=== PATIENT | female | born 1940 | race Caucasian/White ===

== ENCOUNTER → 2018-06-11 14:08 | Outpatient (CLI) | payer MEDICARE, SELFPAY ==
--- NOTE | 2018-06-11 14:11 | DI.CT.S_ITS ---
PROCEDURE: CT CHEST ABD PEL W CON INDICATIONS: A 77-year-old woman with history of non-Hodgkin's lymphoma. CT for surveillance. TECHNIQUE: After the administration of oral and intravenous contrast, 5 mm thick sections acquired from the lung apices to the symphysis. 5 mm coronal and sagittal reformats were performed, with additional 7 mm coronal MIP reformats through the lungs. For radiation dose reduction, the following was used: automated exposure control, adjustment of mA and/or kV according to patient size. COMPARISON: [facility], CT, ABDOMEN/PELVIS WITH CONTRAST, 07/28/2011, 11:44. [facility], CT, NECK/CHEST/ABD/PEL W CONTRAST, 12/26/2016, 9:44. [facility], CT, NECK/CHEST/ABD/PEL W CONTRAST, 03/02/2016, 10:01. [facility], CT, NECK/CHEST/ABD/PEL W CONTRAST, 05/11/2015, 10:58. [facility], CT, NECK/CHEST/ABD/PEL W CONTRAST, 01/05/2015, 13:39. [facility], CT, SOFT TISSUE NECK W CONTRAST, 11/11/2014, 10:39. FINDINGS: Image quality: Excellent. CHEST: Lungs and pleura: Moderate emphysema. Small subcentimeter subpleural nodules lung bases are present, new. No acute airspace opacities. No pleural effusions or pneumothorax. Central and peripheral airways appear patent and normal in caliber. Mediastinum: Heart size is normal. No pericardial effusion. No mediastinal or hilar adenopathy by size criteria. Thoracic aorta and central pulmonary arteries are normal in size. Esophagus is normal in caliber. No hiatal hernia. Chest wall: No axillary or supraclavicular adenopathy by size criteria. Thyroid gland is normal. ABDOMEN: Solid organs: Liver is normal in size and enhancement. Gallbladder is normal. Biliary system is dilated but unchanged from the last exam. Pancreas enhances normally. Spleen is normal in size and enhancement. No adrenal nodules. Kidneys demonstrate normal size and enhancement, without hydronephrosis. Peritoneum and bowel: Bowel loops demonstrate normal wall thickness and caliber. No free fluid or air. Nodes and vessels: No retroperitoneal or mesenteric adenopathy by size criteria. There is a 1.3 x 1 cm calcified mass in the left side of small bowel mesentery, unchanged. Aorta and inferior vena cava are normal in size. Miscellaneous: No ventral hernias. PELVIS: Genitourinary: Bladder wall thickness is normal. Miscellaneous: No inguinal hernias or adenopathy. Bones: No suspicious bony lesions. No vertebral body compression fractures. Moderate levoscoliosis in lumbar spine. Severe degenerative changes are present in lumbar spine. IMPRESSION: 1. No CT evidence for recurrent lymphoma. 2. Emphysema. 3. Small subcentimeter subpleural nodules at lung bases are most likely infectious or inflammatory in etiology. Recommend a 3-months CT followup. 4. Stable calcified mass in the left side of small bowel mesentery. 5. Unchanged biliary dilation. Dictated by: Radha Hernandez M.D. on 06/11/2018 at 16:49 Transcribed by: ISA on 06/11/2018 at 17:00 Approved by: Radha Hernandez M.D. on 06/11/2018 at 18:45
[2018-06-11 15:18] LABS: Hematocrit 34.7 % (36-46); Hemoglobin 11.1 g/dL (12.0-16.0); Mean Corpuscular HGB Conc 31.9 % (30-36); Mean Corpuscular Hemoglobin 27.5 PG (26-34); Mean Corpuscular Volume 86.2 fL (80-100); Platelet Count 492 X10^3/uL (150-400); Red Blood Cell Count 4.02 X10^6/uL (4.0-5.2); Red Cell Distribution Width 15.2 % (11.6-14.8); White Blood Cell Count 12.7 X10^3/uL (4.5-11.0)
[2018-06-11 15:21] LABS: Add Manual Diff / Slide Review YES
[2018-06-11 15:26] LABS: Alanine Aminotransferase 31 IU/L (9-52); Albumin 4.6 g/dL (3.5-5.0); Albumin Globulin Ratio 1.9 (1.0-2.8); Alkaline Phosphatase 90 U/L (38-126); Aspartate Aminotransferase 38 IU/L (14-36); Bilirubin Total 0.4 mg/dL (0.2-1.3); Blood Urea Nitrogen 21 mg/dL (7-17); Calcium 9.6 mg/dL (8.4-10.2); Carbon Dioxide 31 mmol/L (22-32); Chloride 93 mmol/L (98-107); Estimated Glomerular Filt Rate > 60.0 mL/min (>60); Globulin 2.4 g/dL (1.7-4.1); Glucose 81 mg/dL (80-110); HEMOLYSIS 18 (0-50); Lactate Dehydrogenase 954 U/L (313-618); Potassium 4.1 mmol/L (3.4-5.1); Sodium 134 mmol/L (137-145)
[2018-06-11 16:18] LABS: Neutrophils Absolute Manual 10414 /uL (3000-5900); Total Cells Counted 100
[2018-06-11 16:19] LABS: RBC Morphology SM
[2018-06-11 16:20] LABS: Hypersegmented Neutrophils 2+; Platelet Estimate Increased on smear
[2018-06-11 16:21] LABS: Anisocytosis 1+; Poikilocytosis 1+
== END ==
PROVIDERS: Family Provider Family Medicine; PCP Family Medicine
DX: C82.90 Follicular lymphoma, unspecified, unspecified site (principal); J43.9 Emphysema, unspecified; R91.8 Other nonspecific abnormal finding of lung field; K63.9 Disease of intestine, unspecified; K83.8 Other specified diseases of biliary tract
CPT/HCPCS: 36415; 71260; 74177; 80053; 83615; 85025; Q9967

== ENCOUNTER → 2018-07-22 13:46 | Outpatient (CLI) | payer MEDICARE, SELFPAY ==
--- NOTE | 2018-07-22 | DI.RAD.S_ITS ---
PROCEDURE: FL BARIUM SWALLOW W SPEECH INDICATIONS: DYSPHAGIA, shortness of breath, cough TECHNIQUE: Examination was conducted in conjunction with speech pathology per standard protocol. In the lateral projection, filming was performed of the patient swallowing. AP projection filming may also be performed with patient swallowing. COMPARISON: None. FINDINGS: Function: The oral preparatory phase appears normal, with proper containment. The subsequent oral propulsive phase, pharyngeal phase, and esophageal phase of swallowing also appear normal with all proffered substances. There was silent tracheal aspiration.. There was prominent residual and vallecular pooling. Morphology: No cricopharyngeal bar is identified. No cervical esophageal webs. No Zenker's diverticulum. No strictures. IMPRESSION: Silent tracheal aspiration. Dictated by: Memo Vasquez M.D. on 07/22/2018 at 17:18 Approved by: Memo Vasquez M.D. on 07/22/2018 at 17:19
--- NOTE | 2018-07-22 18:28 | ST.SWALLOW ---
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 Edmund Narvaez Reason for Referral Dysphagia Setting Setting Outpatient Care Patient Information Identification Type Name Other Patient History Pt is a 77 year old female who presented for a Modified Barium Swallow Study at the referral of her physician Dr. Narvaez. According to the pt, she has had difficulty with swallowing solids and liquids with frequent choking, coughing, regurgitation of undigested foods and excessive phlegm. She has a medical history of primary gastric signet ring carcinoma and Non-Hodgkin's lymphoma. Sh did not indicate what type of treatment she underwent for the lymphoma, chemo, radiation or both. Subjective Observations pt was seated in the fluoroscopy chair Patient Positioning Position View Lat-A/P Imaging Lateral View Textures Administered Trials Presented Thin Liquid via Spoon Thin Liquid via Cup [place] Liquid via Spoon [place] Liquid via Cup Honey Liquid via Spoon Regular Textures Oral Phase Source: MBSIMP (TM) (C) Bolus Specific Scoring Grid Lip Closure WFL Tongue Control During Bolus Hold WFL Bolus Prep/Mastication WFL Bolus Transport/Lingual Motion Mild Impairment A/P Lingual Propulsion Delay Yes Number of Seconds Delayed (seconds) 1-3 Oral Residue Moderate Impairment Residue Clearing Moderate Impairment Nasal Regurgitation No Additional Oral Phase Observations Pt presents with oral phase dysphagia that results on delayed A-P propulsion of bolus to the base of tongue. Pt is unable to swallow bolus with one swallow - subsequent swallows necessary to clear oral cavity. There is oral residue spills into the pharynx post-swallow. Pharyngeal Phase Source: MBSIMP (TM) (C) Bolus Specific Scoring Grid Delayed Initiation of Pharyngeal Swallow Yes: Bolus head to the pyriform sinuses pre-swallow response Number of Seconds Delayed (seconds) 1-3 Soft Palate Elevation WFL Tongue Base Strength/Range of Motion Moderate Impairment Residue Along the Tongue Base Yes Clearance of Residue Along Tongue Base Moderate Impairment Laryngeal Elevation Mild Impairment Anterior Hyoid Movement Moderate Impairment Epiglottic Range of Motion Severe Impairment Vallecular Residue Yes: Significant residue in valeculla post-swallow Clearance of Vallecular Residue Severe Impairment Laryngeal Vestibular Closure Severe Impairment Pharyngeal Stripping Wave Severe Impairment Pharyngeal Contraction Severe Impairment Clearance of Posterior Pharyngeal Wall Mild Impairment Residue Upper Esophageal Sphincter Opening Mild Impairment Residue in the Pyriform Sinuses Yes: Significant residue in pyriform sinuses. Pt aspirates PS residue Clearance of Residue in the Pyriform Severe Impairment Sinuses Esophageal Clearance Upright Position Moderate Impairment Pharyngoesophageal Backflow Observed No Additional Pharyngeal Phase Observations Pt demonstrates significant pharyngeal dysphagia with no observed pharyngeal stripping or contraction of the pharyngeal muscles to aid in controlling the bolus. The epiglottis does not invert, compromising protection of the airway. Hyolaryngeal elevation is adequate; however there is minimal forward excursion of the hyoid bone, which impacts the positioning of the larynx in the neck and effects epiglottal seal of the laryngeal vestibule. There was penetration of the laryngeal vestibule for all trials of thin and nectar thick liquids. Penetration was observed for subsequent swallows of the residue from the mouth as well as the pharyngeal cavities. Aspiration occurred for thin and nectar thick liquids. Residual barium remained within the vestibule on the anterior wall of the thyroid cartilage, moving downward. All penetration and aspiration was silent - no reflexive cough observed. Pt needed to be cued to cough to clear, which was minimally effective. Honey thick liquids were swallowed without penetration nor aspiration. Residue from the honey thick liquids was evident, but did not penetrate vestibule. Solid trials with a cookie coated in barium indicated significant valecullar pooling with pieces remaining in both the valeculla and the pyriform sinuses. A barium tablet (11mm) was swallowed in both the lateral and A-P views. For both trials with tablets, the tablet immediately lodged in the valeculla and needed several swallow of water to dislodge the tablet into the esophagus. In the A-P view, the tablet dislodged in to the valeculla and after a couple of swallows of water, fell into the left pyiform sinus. Several more sips of water were needed in order to pass the tablet into the esophagus. A/P View Textures Administered Trials Presented [place] Liquid via Cup Barium Tablet A/P View Observations Pharyngeal Contraction Mild Impairment Vocal Fold Function Fair Residue Observed Valleculae Left Pyriform Sinus Left Esophageal Function WFL Esophageal Clearance Upright Position WFL Clinical Impressions Dysphagia Type Moderate to Severe oropharyngeal dysphagia Findings Pt is at high aspiration risk. Thickened liquids and a soft and moist diet recommendeed to avoid aspiration and aspiration pneumonia. Dysphagia therapy recommended to instruct pt in exercises to strengthen lingua-pharyngeal muscles for swallowing as well as strategies to use to reduce aspiration risk. The pt was scheduled for another procedure in radiology , so the results and recommendations were not discussed with the patient. Rehabilitation Potential Good Patient Appropriate for Therapy Yes Recommendations Diet Liquids Order Honey Diet Order Dysphagia Advanced Medication Recommendation Whole in Carrier Crushed in Carrier Aspiration Precautions Recommended Precautions Upright at 90 Degrees Alternate Liquids/Solids Frequent Rest Periods Small Bites/Sips Effortful Swallow Supraglottic Swallow Supersupraglottic Swallow Kacey Maneuvor Treatment Plan Therapy Recommendations Outpatient Speech Therapy Additional Therapy Recommendations Out patient ST for dysphagia HARRY for exercises and to advance pt diet Recommended Referrals Primary Care Physician Compensatory Strategies Recommendations Sitting Upright (90 deg) Double Swallow Supersupraglottic Swallow Mendelsonn Maneuver Small Bites and Sips Alternate Liquids/Solids Short Term Goals Pt will be instructed in and use lingua-pharyngeal exercises to increase tongue and pharyngeal muscles to enhance pharyngeal control of the bolus. Pt will be taught and use safe swallow strategies in order to reduce risk of aspiration during meals. Steam Frame Operator Goals Pt will safely tolerate the least restrictive diet in order to meet nutritional and hydration needs without s/sx aspiration.
--- NOTE | 2018-07-27 10:38 | P.PFT.S_ITS ---
Pulmonary Function Test Referral & Results Date Patient Seen: 07/22/18 Requesting provider: Edmund Narvaez Indication: R06.02 Results: The spirometry demonstrates an FVC of 1.68 L which is 63% of predicted. The FEV1 was measured at 0.75 L which is 37% of predicted. The FEV1/FVC ratio was 45 which is 59% of predicted. Following the administration of bronchodilator there was any% improvement in FEV1 and a 45% improvement in FEF 25-75%. Lung volumes show an SVC of 1.75 L which is 66% of predicted. The diffusing capacity was measured at 6.52 which is 28% of predicted. No hemoglobin value was provided, so no correction for potential anemia could be made, if appropriate. Interpretation: This study demonstrates severe obstructive lung disease with evidence of benefit following bronchodilator based on 45% improvement in FEF 25- 75% which would indicate more benefit and small airway flow There is also moderately severe restrictive lung disease present based on reduction in SVC There is a severe reduction in diffusing capacity suggesting significant disease at the capillary alveolar level to the point where patients likely hypoxic at times on room air Clinical correlation suggested
== END ==
PROVIDERS: PCP Family Medicine; Visit Provider Family Medicine
DX: R06.02 Shortness of breath (principal); R13.10 Dysphagia, unspecified; R05 Cough
CPT/HCPCS: 74230; 92611; 94060

== ENCOUNTER → 2018-09-03 14:22 | Outpatient (CLI) | payer MEDICARE, SELFPAY ==
[2018-09-03 14:46] LABS: Hemoglobin 10.7 g/dL (12.0-16.0); Mean Corpuscular HGB Conc 31.4 % (30-36); Mean Corpuscular Hemoglobin 26.7 PG (26-34); Mean Corpuscular Volume 84.9 fL (80-100); Platelet Count 531 X10^3/uL (150-400); Red Blood Cell Count 4.01 X10^6/uL (4.0-5.2); Red Cell Distribution Width 16.8 % (11.6-14.8)
[2018-09-03 14:51] LABS: Add Manual Diff / Slide Review YES
--- NOTE | 2018-09-03 14:51 | DI.CT.S_ITS ---
PROCEDURE: CT CHEST WO CON INDICATIONS: follow for pulmonary nodules TECHNIQUE: Noncontrast 5 mm thick sections acquired from the pulmonary apices to the posterior costophrenic angles. 7 mm thick coronal and sagittal MIP reformats were then acquired. For radiation dose reduction, the following was used: automated exposure control, adjustment of mA and/or kV according to patient size. COMPARISON: [facility], CT, CT CHEST ABD PEL W CON, 06/11/2018, 15:05. FINDINGS: Image quality: Excellent. Lungs and pleura: Moderate centrilobular emphysema again noted. No suspicious pulmonary nodules. There has been interval progression of patchy peripheral reticular nodular opacities, suggesting inflammatory or infectious process. This has developed in the subpleural region of the anterior segment of the right upper lobe and has progressed in the posterior basilar portions of the lower lobes bilaterally. There are no findings suspicious for neoplasm. Bibasilar bronchiectasis is present. No pleural fluid. Mediastinum: Heart size is normal. No pericardial effusion. No mediastinal adenopathy by size criteria. Thoracic aorta and central pulmonary arteries are normal in size. Esophagus is normal in caliber. No hiatal hernia. Bones and chest wall: No suspicious bony lesions. No vertebral body compression fractures. No axillary or supraclavicular adenopathy by size criteria. Thyroid gland is unremarkable. Abdomen: Visualized upper abdominal solid organs and bowel loops appear normal in the absence of contrast. IMPRESSION: 1. Interval progression of a ill-defined peripheral pulmonary parenchymal process, which is somewhat progressed in the posterior lung bases and has begun in the anterior aspect of the right upper lobe. Findings are consistent with an inflammatory or infectious process and not malignancy. 2. Bibasilar bronchiectasis. 3. Moderate centrilobular emphysema. Dictated by: Grzegorz Wood M.D. on 09/03/2018 at 15:29 Approved by: Grzegorz Wood M.D. on 09/03/2018 at 15:41
[2018-09-03 15:13] LABS: Neutrophils Absolute Manual 15130 /uL (3000-5900); Total Cells Counted 100
[2018-09-03 15:14] LABS: Poikilocytosis 1+
[2018-09-03 15:15] LABS: Hypochromasia 1+
[2018-09-03 15:24] LABS: Alanine Aminotransferase 26 IU/L (9-52); Albumin 4.1 g/dL (3.5-5.0); Albumin Globulin Ratio 1.8 (1.0-2.8); Alkaline Phosphatase 102 U/L (38-126); Aspartate Aminotransferase 40 IU/L (14-36); BUN Creatinine Ratio 28.6 (6-22); Bilirubin Total 0.5 mg/dL (0.2-1.3); Blood Urea Nitrogen 20 mg/dL (7-17); Calcium 9.3 mg/dL (8.4-10.2); Carbon Dioxide 31 mmol/L (22-32); Chloride 93 mmol/L (98-107); Estimated Glomerular Filt Rate > 60.0 mL/min (>60); Globulin 2.3 g/dL (1.7-4.1); Glucose 124 mg/dL (80-110); HEMOLYSIS 28 (0-50); Lactate Dehydrogenase 1430 U/L (313-618); Potassium 4.3 mmol/L (3.4-5.1); Sodium 134 mmol/L (137-145); Total Protein 6.4 g/dL (6.3-8.2)
[2018-09-03 15:58] LABS: Ferritin 10.3 ng/mL (11.1-264)
== END ==
PROVIDERS: PCP Family Medicine
DX: C82.90 Follicular lymphoma, unspecified, unspecified site (principal); R91.8 Other nonspecific abnormal finding of lung field; J43.2 Centrilobular emphysema; J47.9 Bronchiectasis, uncomplicated
CPT/HCPCS: 36415; 71250; 80053; 82728; 83615; 85025

== ENCOUNTER → 2018-09-10 15:53 | Outpatient (CLI) | payer MEDICARE, SELFPAY ==
[2018-09-10 16:34] LABS: Reticulocyte Count, Percent 0.7 % (1.06-2.63)
[2018-09-10 16:45] LABS: Bilirubin Direct 0.2 mg/dL (0.0-0.4); Bilirubin Total 0.4 mg/dL (0.2-1.3)
[2018-09-12 14:22] LABS: Haptoglobin 248 mg/dL (43-212)
== END ==
PROVIDERS: Family Provider Family Medicine; PCP Family Medicine
DX: C82.90 Follicular lymphoma, unspecified, unspecified site (principal)
CPT/HCPCS: 36415; 82247; 82248; 83010; 85045; 86880

== ENCOUNTER → 2018-09-11 10:58 | Oncology outpatient (ONC) | payer MEDICARE, SELFPAY ==
[2018-06-04 14:54] VITALS: BP 141/73; PULSE 80; RESP 16; TEMP 37.1; O2SAT 95
--- NOTE | 2018-06-04 16:47 | ONC.PN ---
PN -Subjective Interval history: Diagnosis: 1. Gastric cancer diagnosed in 2001 treated with partial gastrectomy followed by chemotherapy and radiation. 2. Follicular lymphoma diagnosed in 2014 treated with 6 cycles of bendamustine and Rituxan followed by maintenance Rituxan finishing in March 2017. Interval history: The patient is a 77-year-old woman who returns today for follow-up. She was seen here last in March of 2017. Since then, she has been bothered by chronic complaints of abdominal pain with diarrhea poor appetite and early satiety. Over the last year she has lost about 5 lb or so. She has noted some discomfort mostly in the low abdomen. She denies any shortness of breath but does have some coughing when she eats. She has noted a little bit of adenopathy in the neck that has been small, firm but nontender. She denies any fevers chills or night sweats. Her medications include Vicodin and pantoprazole she also takes vitamins. - Patient Self-Reported Symptoms SR Constitution: Weight loss/gain, Fatigue/Malaise SR eye issues: Vision changes SR ears, nose, mouth, throat issues: Cough SR respiratory issues: Cough, Mucous SR Skin issues: Dry skin SR Gastrointestinal issues: Abdominal pain SR Genitourinary issues: Frequent urination SR Hematologic issues: Slow healing, Bleeding/bruising, Swollen lymph nodes Home Medications and Allergies Home Medications Medication Instructions Recorded Confirmed Type polyethylene glycol 3350 [Miralax] 17 gm PO QDAYP PRN #0 12/12/16 History Allergies Allergy/AdvReac Type Severity Reaction Status Date / Time penicillin V [PENICILLIN V] Allergy Unknown Unverified 08/15/17 12:02 Exam - Constitutional positive no acute distress, positive thin - Routine HEENT Exam Head: Present: normocephalic, atraumatic Eye: Present: EOMI, PERRL. Absent: conjunctival icterus, scleral injection ENT: Present: mucous membranes moist, oropharynx clear - Routine Neck Exam Present: supple, lymphadenopathy. Absent: thyromegaly Comments: She has small shoddy adenopathy bilaterally in the neck. All the nodes are well under a cm. It feels like the largest node may be perhaps 4-5 mm. - Routine Chest/Breast/Axilla Exam Axillae: Absent: lymphadenopathy - Routine Respiratory Exam Present: Clear to auscultation bilaterally. Absent: rales, wheezes - Routine Cardiovascular Exam Present: RRR, S1, S2. Absent: murmur - Routine Abdominal Exam Present: soft, normoactive bowel sounds. Absent: tenderness, organomegaly, mass - Routine Extremities Exam Absent: cyanosis, clubbing, edema - Routine Back/Spine Exam Back/Spine: Absent: paraspinal tenderness, vertebral tenderness - Routine Skin Exam Present: intact. Absent: petechiae, rash Comments: She does have some areas of ecchymoses. There is an abrasion on her left arm from a fall. - Routine Neurological Exam Present: alert, oriented X3 - Routine Psychiatric Exam Present: normal affect, normal thought process Assessment and Plan (1) Follicular lymphoma Current visit: Yes Status: Acute A 77-year-old woman with a history of follicular lymphoma. She completed her maintenance Rituxan little bit more than a year ago. She does have some abdominal pain and some small nodes in the neck. We will plan on getting a CT scan for restaging. She will return to clinic here in follow-up after that. (2) Thrombocytosis Current visit: Yes Status: Acute Her most recent CBC demonstrated a platelet count of [id number]. Previously had has been normal. This may represent a reactive process or iron deficiency. I think it is less likely that she would have an underlying myeloproliferative disorder. We will plan on repeating a CBC today. If her platelet count is still high, then further evaluation may be warranted.
[2018-06-12 11:39] VITALS: BP 135/86; PULSE 80; RESP 18; TEMP 36.5; O2SAT 95
--- NOTE | 2018-06-12 12:17 | ONC.PN ---
PN -Subjective Interval history: Diagnosis: 1. Gastric cancer diagnosed in 2001 treated with partial gastrectomy followed by chemotherapy and radiation. 2. Follicular lymphoma diagnosed in 2014 treated with 6 cycles of bendamustine and Rituxan followed by maintenance Rituxan finishing in March 2017. Interval history: The patient is a 77-year-old woman who returns today for follow-up. She has a distant history of gastric cancer and a more recent history of follicular lymphoma. She completed her maintenance Rituxan a little bit more than a year ago. Since her last visit here, she has been feeling about the same. She notes ongoing fatigue as well as some cough and shortness of breath. She has taken course of antibiotics but did not improve. She was given a prescription for another 1 but has not taken it. She has had some fevers. She has not noticed any new adenopathy. The small nodes in her neck have been stable. Her appetite has been poor but her weight has been stable. She has been tending towards constipation which has been relieved with MiraLax. She notes easy bruising and slow wound healing. She has not had any aundrea bleeding though. She denies any other changes in her health. Her medications include Vicodin and pantoprazole she also takes vitamins. - Patient Self-Reported Symptoms SR Constitution: Weight loss/gain, Fatigue/Malaise SR eye issues: Vision changes SR ears, nose, mouth, throat issues: Cough SR respiratory issues: Cough, Mucous SR Skin issues: Dry skin SR Gastrointestinal issues: Abdominal pain SR Genitourinary issues: Frequent urination SR Hematologic issues: Slow healing, Bleeding/bruising, Swollen lymph nodes Home Medications and Allergies Home Medications Medication Instructions Recorded Confirmed Type polyethylene glycol 3350 [Miralax] 17 gm PO QDAYP PRN #0 12/12/16 History B.breve-L.acid-L.rham-S.thermo 1 tab PO DAILY 06/12/18 06/12/18 History [Probiotic] calcium carbonate [Calcium 500] 06/12/18 History cyanocobalamin (vitamin B-12) 06/12/18 History [Vitamin B-12] hydrocodone-acetaminophen 1 tab PO Q6H PRN 06/12/18 06/12/18 History multivitamin 06/12/18 History pantoprazole [Protonix] 06/12/18 History Allergies Allergy/AdvReac Type Severity Reaction Status Date / Time penicillin V [PENICILLIN V] Allergy Unknown Unverified 08/15/17 12:02 Exam - Constitutional positive no acute distress, positive thin - Routine HEENT Exam Head: Present: normocephalic, atraumatic Eye: Present: EOMI, PERRL. Absent: conjunctival icterus, scleral injection ENT: Present: mucous membranes moist, oropharynx clear - Routine Neck Exam Present: supple Comments: She has some tiny bilateral adenopathy all well under a cm. It appears stable compared to her last visit. There is no supraclavicular or axillary adenopathy. - Routine Respiratory Exam Present: Clear to auscultation bilaterally. Absent: rales, wheezes - Routine Cardiovascular Exam Present: RRR, S1, S2. Absent: murmur - Routine Abdominal Exam Present: soft, normoactive bowel sounds. Absent: tenderness, organomegaly - Routine Extremities Exam Absent: cyanosis, clubbing, edema - Routine Skin Exam Present: intact, ecchymosis. Absent: rash - Routine Neurological Exam Present: alert, oriented X3 - Routine Psychiatric Exam Present: normal affect, normal thought process Results - Imaging CT scan - abdomen: report reviewed CT scan - chest: report reviewed CT scan - pelvis: report reviewed (No sign of recurrent lymphoma. She does have some indeterminate pulmonary nodules with a 3 month follow-up recommended.) Assessment and Plan (1) Follicular lymphoma Current visit: Yes Status: Acute A 77-year-old woman with a history of follicular lymphoma. She completed her maintenance Rituxan little bit more than a year ago. She has no evidence of recurrent lymphoma. She did have some indeterminate pulmonary nodules and will need a follow-up scan in the spring. (2) Thrombocytosis Current visit: Yes Status: Acute Her platelet count has risen proved some since her last visit although she did has developed a very mild anemia. Will discontinue to observe her counts for now. We will plan on checking a ferritin as well as a CBC in the spring when she returns for follow-up.
[2018-09-10 15:03] VITALS: BP 150/88; PULSE 90; RESP 16; TEMP 36.7; O2SAT 94
--- NOTE | 2018-09-10 15:34 | P.PNONC_ITS ---
PN -Subjective Interval history: Diagnosis: 1. Gastric cancer diagnosed in 2001 treated with partial gastrectomy followed by chemotherapy and radiation. 2. Follicular lymphoma diagnosed in 2014 treated with 6 cycles of bendamustine and Rituxan followed by maintenance Rituxan finishing in March 2017. Interval history: The patient is a 77-year-old woman who returns today for follow-up. She has a distant history of gastric cancer and a more recent history of follicular lymphoma. She completed her maintenance Rituxan a little bit more than a year ago. Since her last visit here, she has been feeling poorly. She notes some increased weakness and fatigue. She has had some dyspnea on exertion particularly when walking up hills. She has been bothered by chronic cough that has not responded to a couple courses of antibiotics. She denies any fevers or chills though. Her appetite has been low but her weight has been stable. She d oes have a feeling of fullness after eating that she feels put some pressure in her chest makes it harder for her to breathe. She does have episodes of nausea and vomiting. She has been tending towards constipation as well. She has not been aware of any unusual bleeding or bruising, although she does bruise easily. She has not noticed any adenopathy. She has not noted any persistent new aches or pains. Her medications include Vicodin and pantoprazole she also takes vitamins. - Patient Self-Reported Symptoms SR Constitution: Weight loss/gain, Fatigue/Malaise SR eye issues: Vision changes SR ears, nose, mouth, throat issues: Cough SR respiratory issues: Cough SR Skin issues: Dry skin SR Gastrointestinal issues: Abdominal pain SR Genitourinary issues: Frequent urination SR Hematologic issues: Slow healing, Bleeding/bruising, Swollen lymph nodes Home Medications and Allergies Home Medications Medication Instructions Recorded Confirmed Type polyethylene glycol 3350 [Miralax] 17 gm PO QDAYP PRN #0 12/12/16 History B.breve-L.acid-L.rham-S.thermo 1 tab PO DAILY 06/12/18 06/12/18 History [Probiotic] calcium carbonate [Calcium 500] 06/12/18 History cyanocobalamin (vitamin B-12) 06/12/18 History [Vitamin B-12] hydrocodone-acetaminophen 1 tab PO Q6H PRN 06/12/18 06/12/18 History multivitamin 06/12/18 History pantoprazole [Protonix] 06/12/18 History Allergies Allergy/AdvReac Type Severity Reaction Status Date / Time penicillin V [PENICILLIN V] Allergy Unknown Unverified 08/15/17 12:02 Exam Vital signs: Vital Signs Temp Pulse Resp BP Pulse Ox 09/10/18 15:03 98.1 F 90 16 150/88 H 94 Intake and Output 09/09/18 09/10/18 09/10/18 23:59 07:59 15:59 Other: Weight 34.6 kg Patient Weight 09/10/18 23:59 Weight 34.6 kg - Constitutional positive no acute distress, positive thin - Routine HEENT Exam Head: Present: normocephalic, atraumatic Eye: Present: EOMI, PERRL. Absent: conjunctival icterus, scleral injection ENT: Present: mucous membranes moist, oropharynx clear, dentition normal - Routine Neck Exam Present: supple, lymphadenopathy Comments: She has some tiny bilateral cervical nodes all well under a cm. I do not feel any supraclavicular or axillary nodes. - Routine Chest/Breast/Axilla Exam Axillae: Absent: lymphadenopathy - Routine Respiratory Exam Present: decreased breath sounds, wheezes Comments: She does have some wheezes and coarse breath sounds at the bases bilaterally. - Routine Cardiovascular Exam Present: RRR, S1, S2. Absent: murmur - Routine Abdominal Exam Present: soft, normoactive bowel sounds. Absent: tenderness, organomegaly, mass - Routine Extremities Exam Absent: cyanosis, clubbing, edema - Routine Back/Spine Exam Back/Spine: Absent: vertebral tenderness Comments: She does have some scoliosis and kyphosis. - Routine Skin Exam Present: intact. Absent: petechiae, rash Comments: She has some abrasions are healing. - Routine Neurological Exam Present: alert, oriented X3 - Routine Psychiatric Exam Present: normal affect, normal thought process Results - Labs [place] a [place] [address] hemoglobin 10.7 hematocrit 34 and platelets [id number]. Her LDH was 1430 and ferritin was 10.3. - Imaging CT scan - chest: image reviewed Assessment and Plan (1) Follicular lymphoma Current visit: Yes Status: Acute A 77-year-old woman with a history of follicular lymphoma. She completed her maintenance Rituxan little bit more than a year ago. She has no evidence of recurrent lymphoma. Her CT does show some worsening likely inflammatory infiltrates but no evidence of cancer. Given her ongoing cough, I think it is reasonable to make referral to pulmonology to see if any further investigation is warranted. (2) Thrombocytosis Current visit: Yes Status: Acute Platelet count continues to rise. She has also developed worsening anemia with a low ferritin. This is potentially consistent with iron deficiency although she has not had any evidence of bleeding. Because of her prior history of gastric cancer, she certainly could have poor absorption. Iron deficiency would be unlikely to account for her rising white count or an elevated LDH. We will plan on looking for any evidence of hemolysis. I did ask her to start taking some oral iron. Hopefully her counts will improve.
== END ==
PROVIDERS: Family Provider Family Medicine; PCP Family Medicine
DX: Z08 Encounter for follow-up examination after completed treatment for malignant neoplasm (principal); D47.3 Essential (hemorrhagic) thrombocythemia; Z85.72 Personal history of non-Hodgkin lymphomas; Z85.028 Personal history of other malignant neoplasm of stomach
CPT/HCPCS: 36415; 82247; 82248; 83010; 85045; 86880; 99214